=== PATIENT | female | born 1985 | race Caucasian/White ===

== ENCOUNTER 2017-12-19 10:47 | Emergency (ER) | payer MEDICAID ==
[~2017-12-19] VITALS: Ht 170.2 cm; Wt 83.6 kg
[2017-12-19 11:17] VITALS: Ht 170.2 cm; Wt 83.6 kg
[2017-12-19] MEDS ORDERED: PAXIL10 MG/5 ML PO (11:24)
[2017-12-19] MEDS ORDERED: SEROQUEL200 MG PO (11:24)
[2017-12-19] MEDS ORDERED: PAXIL30 MG PO (11:25)
[2017-12-19] MEDS ORDERED: NORCO 7.5/325 T1 TA1 PO (11:58)
[2017-12-19] MEDS ORDERED: ACETAMINOPHEN500 M1 PO (13:33)
[2017-12-19] MEDS ORDERED: IBUPROFEN800 MG PO (13:33)
[2017-12-19] MEDS ORDERED: CYCLOBENZAPRINE10 MG PO (13:33)
[2017-12-19 13:50] VITALS: BP 112/75
== END 2017-12-19 13:56 | disposition home or self-care (01) ==
LOC: D.ER 10:47
DX: S60.221A Contusion of right hand, initial encounter (principal); W19.XXXA Unspecified fall, initial encounter; Y93.89 Activity, other specified; M79.641 Pain in right hand; Y92.9 Unspecified place or not applicable; F17.200 Nicotine dependence, unspecified, uncomplicated